=== PATIENT | male | born 1970 | race African-American/Black ===

== ENCOUNTER 2020-08-02 12:26 | Emergency (ER) | payer OTHER ==
[2020-08-02] MEDS ORDERED: IBUPROFEN 800 MG TABLET PO ONE (14:32)
[2020-08-02] MEDS ORDERED: HYDROCODONE/ACETAMINOPHEN 5-325 MG (6 TAB/ER DISP) PO PRN (14:35)
--- NOTE | 2020-08-02 14:37 | ER Document Report ---
HPI - HPI Time Seen by Provider: 08/02/20 14:12 Notes: 50 yr male presents today with complaints of left shoulder pain after he helps his disabled father from falling onto the ground, he broke his fall but in the interim injured his left shoulder. Denies any pop or crack sound at the time. Patient states that he woke up this morning with severe pain. States he took Tylenol yesterday and pain patch with some relief. No prior issues with his left shoulder. Denies any numbness or tingling down bilateral arms or legs. Denies any other area of injury. Patient states he has pain when he tries to lift his shoulder. Reports pain is 3 out of 5, throbbing achy. Denies fevers, chills, chest pain,palpitations, shortness of breath, dyspnea, nausea, vomiting, diarrhea, abdominal pain, hematuria,blurred vision, double vision, loss of vision, speech changes, LH, dizziness, syncope, headaches, wheezing, ST, URI, neck pain, weakness, bowel or bladder dysfunction, saddle anesthesia, numbness or tingling in bilateral upper or lower extremities equally, muscle paralysis, weakness in bilateral upper or lower extremities equally or rash. Denies IV drug use. MEDICATIONS: I agree with the patient medications as charted by the RN. ALLERGIES: I agree with the allergies as charted by the RN. PAST MEDICAL HISTORY/PAST SURGICAL HISTORY: Reviewed and agree as charted by RN. SOCIAL HISTORY: Reviewed and agree as charted by RN. FAMILY HISTORY: No significant familial comorbid conditions directly related to patient complaint EXAM: Reviewed vital signs as charted by RN. REVIEW OF SYSTEMS:reviewed vital signs by RN CONSTITUTIONAL : Denies fever, chills, or sweats. Denies recent illness. EENT: Denies eye, ear, throat, or mouth pain or symptoms. Denies nasal or sinus congestion or discharge. Denies throat, tongue, or mouth swelling or difficulty swallowing. CARDIOVASCULAR: Denies chest pain. Denies palpitations or racing or irregular heart beat. Denies ankle edema. RESPIRATORY: Denies cough, cold, or chest congestion. Denies shortness of breath, difficulty breathing, or wheezing. GASTROINTESTINAL: Denies abdominal pain or distention. Denies nausea, vomiting, or diarrhea. Denies blood in vomitus, stools, or per rectum. Denies black, tarry stools. Denies constipation. GENITOURINARY: Denies difficulty urinating, painful urination, burning, frequency, blood in urine, or discharge. MUSCULOSKELETAL: Reports left shoulder pain. denies back or neck pain or s tiffness. Denies joint pain or swelling. SKIN: Denies rash, lesions or sores. HEMATOLOGIC : Denies easy bruising or bleeding. LYMPHATIC: Denies swollen, enlarged glands. NEUROLOGICAL: Denies confusion or altered mental status. Denies passing out or loss of consciousness. Denies dizziness or lightheadedness. Denies headache. Denies weakness or paralysis or loss of use of either side. Denies problems with gait or speech. Denies sensory loss, numbness, or tingling. Denies seizures. PSYCHIATRIC: Denies anxiety or stress. Denies depression, suicidal ideation, or homicidal ideation. ALL OTHER SYSTEMS REVIEWED AND NEGATIVE. Dictation was performed using [employer] recognition software PHYSICAL EXAMINATION: GENERAL: Well-appearing, well-nourished and in no acute distress. HEAD: Atraumatic, normocephalic. EYES: Pupils equal round and reactive to light, extraocular movements intact, sclera anicteric, conjunctiva are normal. ENT: Nares patent, oropharynx clear without exudates. Moist mucous membranes. NECK: Normal range of motion, supple without lymphadenopathy LUNGS: Breath sounds clear to auscultation bilaterally and equal. No wheezes rales or rhonchi. HEART: Regular rate and rhythm without murmurs ABDOMEN: Soft, nontender, nondistended abdomen. No guarding, no rebound. No masses appreciated. Musculoskeletal: Normal range of motion, no pitting or edema. No cyanosis. left shoulder pain with abduction and flexion. no pain with supination, pronation, extension. Sap Bpc Developer + 2 BUE equally. APROM in shoulder. DTR +2 in BUE equally. Noted crepitus with APROM in elbow. negative drop arm, neer sign, saleh test bilaterally. slightly positive impingement sign all on left. No vascular compromise. Neck with full APROM, no cervical spinal tenderness. No tenderness over clavicles or step off noted bilaterally. Strength 5 out of 5 in bilateral upper extremities equally. NEUROLOGICAL: Cranial nerves grossly intact. Normal speech, normal gait. Normal sensory, motor exams PSYCH: Normal mood, normal affect. SKIN: Warm, Dry, normal turgor, no rashes or lesions noted. Past Medical History - General Information source: Patient - Social History Smoking Status: Unknown if Ever Smoked Family History: Reviewed & Not Pertinent Vertical Provider Document - CONSTITUTIONAL Agree With Documented VS: Yes Exam Limitations: No Limitations General Appearance: WD/WN Course - Re-evaluation Re-evalutation: 08/02/20 14:49 Afebrile vital stable no distress. Nurses notes reviewed. X-ray of left shoulder negative for acute fracture or dislocation, shows arthritis of the shoulder joint. Patient placed in a sling, given a sixpack of [place] to help with his pain, advised to not drive, drink alcohol or operate machinery while taking medication because sedation from about a function. Advised to follow-up with employment specialist. Advised to alternate between Tylenol and meloxicam for pain control. After performing a Medical Screening Examination, I estimate there is LOW risk for OPEN FRACTURE, COMPARTMENT SYNDROME, DEEP VENOUS THROMBOSIS, ACUTE TENDON RUPTURE, or NEUROVASCULAR INJURY thus I consider the discharge disposition reasonable. I have reevaluated this patient multiple times and no significant life threatening changes are noted. The patient and I have discussed the diagnosis and risks, and we agree with discharging home to closely follow-up with their primary doctor or the referral orthopedist with the understanding that symptoms and presentations can change. We also discussed returning to the Emergency Department immediately if new or worsening symptoms occur. We have discussed the symptoms which are most concerning (e.g., changing or worsening pain, numbness, weakness) that necessitate immediate return 08/02/20 15:42 - Vital Signs Vital signs: Temp Pulse Resp BP Pulse Ox 99.2 F 88 18 155/95 H 98 08/02/20 12:53 08/02/20 12:53 08/02/20 12:53 08/02/20 12:53 08/02/20 12:53 Discharge - Discharge Clinical Impression: Left shoulder pain Condition: Stable Disposition: HOME, SELF-CARE Instructions: Oral Narcotic Medication ([facility]), Exercise Program for the Shoulder ([facility]), Shoulder Injury ([facility]), Sling as Treatment ([facility]) Additional Instructions: Your x-ray today is negative for any acute fracture dislocation. You were given a sling for treatment. Take [id number] Tylenol and prescribe meloxicam as directed for pain control. Apply heat 20 minutes on 20 minutes off several times a day. Please follow-up with employment specialist next 24 to 48 hours. Return immediately for any new or worsening symptoms. Follow up with primary care provider, call tomorrow to make followup appointment. Prescriptions: Meloxicam [Mobic] 7.5 mg PO DAILY #7 tablet Forms: Return to Work Referrals: GAGAN FISHER MD [ACTIVE STAFF] - Follow up as needed SARIKA LOPEZ DO [ACTIVE STAFF] - Follow up as needed
--- NOTE | 2020-08-02 15:14 | RADIOLOGY REPORT (SQ) ---
EXAM DESCRIPTION: SHOULDER LEFT 2 OR MORE VIEWS IMAGES COMPLETED DATE/TIME: 08/02/2020 3:04 pm REASON FOR STUDY: L shoulder pain after lifting up father from fall COMPARISON: None. NUMBER OF VIEWS: Three views. TECHNIQUE: Internal rotation, external rotation, and Y view images acquired of the left shoulder. LIMITATIONS: None. FINDINGS: MINERALIZATION: Normal. BONES: No acute fracture. No worrisome bone lesions. JOINTS: No dislocation. Acromioclavicular and glenohumeral osteoarthropathy with osteophytosis VISUALIZED LUNGS AND RIBS: No pneumothorax. No rib fracture. SOFT TISSUES: No radiopaque foreign body. OTHER: No other significant finding. IMPRESSION: 1. No evidence of acute bony abnormality. 2. Mild acromioclavicular and glenohumeral osteoarthropathy. TECHNICAL DOCUMENTATION: JOB ID: [id number]- All Rights Reserved Reading location - IP/workstation name: [email or web address]
[2020-08-02 15:49] VITALS: BP 172/102
== END 2020-08-02 15:45 | disposition home or self-care (01) ==
LOC: ER 12:26
DX: M19.012 Primary osteoarthritis, left shoulder (principal); M25.512 Pain in left shoulder
CPT/HCPCS: 99283